=== PATIENT | female | born 1955 | race Caucasian/White ===

== ENCOUNTER 2017-12-29 05:22 | Inpatient (IN) | payer OTHER ==
[2017-12-29] MEDS: DEXAMETHASONE 4 MG/ML 1 ML INJ IV (06:38)
[2017-12-29] MEDS: oxyCODONE (CR) 10 MG TAB [oxyCONTIN] PO (06:38)
[2017-12-29] MEDS: ONDANSETRON 4 MG INJ IV ×5 (06:38→21:13)
[2017-12-29] MEDS: LACTATED RINGER'S 1,000 ML IV* (06:39)
[2017-12-29] MEDS: ACETAMINOPHEN 1000MG/100ML IV 100 ML IVPB (06:39)
[2017-12-29] MEDS ORDERED: EPHEDrine SULFATE 50 MG/5 ML SYG ×2 (07:00)
[2017-12-29] MEDS ORDERED: ALBUMIN HUMAN 5% 250 ML INJ (07:00)
[2017-12-29] MEDS ORDERED: CEFAZOLIN 1 GM INJ (07:00)
[2017-12-29] MEDS ORDERED: CA CHLORIDE 10% 10 ML SYRINGE (07:00)
[2017-12-29] MEDS: LANSOPRAZOLE 30 MG CAP PO (07:09)
[2017-12-29] MEDS ORDERED: MIDAZOLAM 1 MG/ML 2 ML INJ (07:19)
[2017-12-29] MEDS ORDERED: FENTAnyl 50 MCG/ML VIAL (07:19)
[2017-12-29] MEDS ORDERED: LIDOCAINE 2% (SDV) 5 ML INJ (07:20)
[2017-12-29] MEDS ORDERED: PROPOFOL 20 ML (07:20)
[2017-12-29] MEDS ORDERED: morphine SULFATE/PF (10 MG/10 ML) INJ (07:20)
[2017-12-29] MEDS ORDERED: ONDANSETRON 4 MG INJ (07:21)
[2017-12-29] MEDS ORDERED: BUPIVACAINE 0.75%/DEXT (SPINAL) 2 ML INJ (07:25)
[2017-12-29] MEDS: HIP PAIN COCKTAIL (CEFUROXIME) INJ ×2 (07:30→08:12)
[2017-12-29] MEDS: CEFAZOLIN 1 GM/50 ML (PMX) 50 ML IVPB ×3 (07:30→17:13)
[2017-12-29] MEDS: TRANEXAMIC ACID 1,000 MG in NS 100 ML PRE-OP X1 IVPB (07:30)
[2017-12-29] MEDS: TRANEXAMIC ACID 1,000 MG in NS 100 ML INTRA-OP X1 IVPB (07:30)
[2017-12-29] MEDS: POLYMYXIN B 500000 UNIT INJ (08:12)
[2017-12-29] MEDS: BACITRACIN 50000 UNITS INJ (08:12)
[2017-12-29] MEDS: POLYMYXIN/BACITRACIN 1L IRRIG (08:12)
[2017-12-29] MEDS ORDERED: NALOXONE (0.4 MG/ML) INJ IV ×2 (09:00→10:30)
[2017-12-29] MEDS ORDERED: BISACODYL 10 MG SUPP PR (09:00)
[2017-12-29] MEDS ORDERED: NA PHOSPHATE/BIPHOS 133 ML ENEMA PR (09:00)
[2017-12-29] MEDS ORDERED: NACL 0.9% 3 ML SYG IV (09:00)
[2017-12-29] MEDS ORDERED: BETHANECHOL 25 MG TAB PO (09:00)
[2017-12-29] MEDS ORDERED: DIPHENHYDRAMINE 50 MG INJ IM (09:00)
[2017-12-29] MEDS ORDERED: HYDROmorphONE 1 MG/5 ML IV SYRINGE IV ×3 (10:30)
[2017-12-29] MEDS ORDERED: FENTAnyl 50 MCG/ML VIAL IV ×2 (10:30)
[2017-12-29] MEDS ORDERED: ZOLPIDEM 5 MG TAB PO (10:30)
[2017-12-29] MEDS ORDERED: DIPHENHYDRAMINE 50 MG INJ IV ×2 (10:30)
[2017-12-29] MEDS ORDERED: HYDROmorphONE 0.5 MG/0.5 ML SYG IV ×2 (10:30)
[2017-12-29] MEDS ORDERED: ONDANSETRON 4 MG INJ IV ×2 (10:30)
[2017-12-29] MEDS ORDERED: MEPERIDINE 25 MG INJ IV (10:30)
[2017-12-29 10:35] LABS: ABNORMAL IP MESSAGE 1; HEMATOCRIT 27.9 % (37.0-47.0); HEMOGLOBIN 9.2 g/dl (12.0-16.0); MEAN CORPUSCULAR HEMOGLOBIN 31.5 pg (29.0-33.0); MEAN CORPUSCULAR VOLUME 95.5 fl (82.0-101.0); MEAN PLATELET VOLUME 9.8 fl (7.4-10.4); PLATELET COUNT 178 10^3/UL (140-415); RED BLOOD COUNT 2.92 10^6/ul (4.20-5.40); RED CELL DISTRIBUTION WIDTH 12.8 % (11.5-14.5)
[2017-12-29 10:35] LABS: WHITE BLOOD COUNT 6.3 10^3/ul (4.8-10.8)
[2017-12-29 10:37] LABS: HOLD TRANSMISSIONS 1; POSITIVE DIFF @See below
[2017-12-29 10:38] LABS: ADD MAN DIFF? YES
[2017-12-29] MEDS: DOCUSATE SODIUM 100 MG CAP PO (10:41)
[2017-12-29] MEDS: ASPIRIN (EC) 325 MG TAB PO ×2 (10:42→21:18)
[2017-12-29 10:57] LABS: ANION GAP 9 (8-16); BLOOD UREA NITROGEN 16 mg/dl (7-20); CARBON DIOXIDE 28 mmol/L (21-31); CHLORIDE 109 mmol/L (97-110); CREATININE 0.62 mg/dl (0.44-1.00); GLUCOSE 163 mg/dl (70-220); POTASSIUM 4.1 mmol/L (3.5-5.1); SODIUM 142 mmol/L (135-144)
[2017-12-29 10:58] LABS: CALCIUM 10.1 mg/dl (8.4-10.2); PARTIAL THROMBOPLASTIN TIME 29.2 Sec (25.0-35.0); PROTIME 14.4 Sec (11.9-14.9); PT RATIO 1.1
[2017-12-29 11:18] LABS: ANISOCYTOSIS 1+ (0-0); BAND NEUTROPHILS #M 0.3 10^3/ul (0.0-0.6); BAND NEUTROPHILS % (M) 5 % (0-4); LYMPHOCYTES #M 0.6 10^3/ul (0.8-2.9); LYMPHOCYTES % (M) 10 % (15-51); METAMYELOCYTES %M 1 % (0-0); MICROCYTOSIS 1+ (0-0); PLATELET ESTIMATE NORMAL; SEG NEUT #M 5.3 10^3/ul (1.6-7.5); SEGMENTED NEUTROPHILS (M) % 84 % (39-77); SMUDGE%M 37 % (0-0)
[2017-12-29] MEDS ORDERED: ALBUTEROL 0.083% (NEB) 2.5 MG/3 ML AMP NEB (12:30)
[2017-12-29] MEDS: SOD CHLORIDE 0.9% 1,000 ML IV ×2 (13:04→21:30)
[2017-12-29] MEDS: oxyCODONE 5 MG TAB PO ×2 (17:12→21:32)
[2017-12-29] MEDS: traZODone 50 MG TAB PO (21:13)
[2017-12-29] MEDS: VENLAFAXINE 75 MG TABLET PO (22:32)
[2017-12-30] MEDS: SOD CHLORIDE 0.9% 1,000 ML IV ×3 (01:41→15:21)
[2017-12-30] MEDS: CEFAZOLIN 1 GM/50 ML (PMX) 50 ML IVPB (01:58)
[2017-12-30] MEDS: ONDANSETRON 4 MG INJ IV (02:42)
[2017-12-30] MEDS: oxyCODONE 5 MG TAB PO ×2 (03:13→20:36)
[2017-12-30 05:41] LABS: ADD MAN DIFF? NO
[2017-12-30 05:48] LABS: WHITE BLOOD COUNT 6.8 10^3/ul (4.8-10.8)
[2017-12-30 05:48] LABS: ABNORMAL IP MESSAGE 1; BASOPHILS % 0.1 % (0.0-2.0); EOSINOPHILS # 0.1 10^3/ul (0.0-0.5); EOSINOPHILS % 1.3 % (0.0-7.0); HEMATOCRIT 19.6 % (37.0-47.0); LYMPHOCYTES # 1.4 10^3/ul (0.8-2.9); LYMPHOCYTES % 20.9 % (15.0-51.0); MEAN CORPUSCULAR HEMOGLOBIN 31.2 pg (29.0-33.0); MEAN CORPUSCULAR HGB CONC 32.1 g/dl (32.0-37.0); MEAN PLATELET VOLUME 10.5 fl (7.4-10.4); MONOCYTE # 0.5 10^3/ul (0.3-0.9); MONOCYTES % 7.6 % (0.0-11.0); NEUTROPHIL # 4.7 10^3/ul (1.6-7.5); NEUTROPHILS % 69.7 % (39.0-77.0); PLATELET COUNT 137 10^3/UL (140-415); RED BLOOD COUNT 2.02 10^6/ul (4.20-5.40); RED CELL DISTRIBUTION WIDTH 13.1 % (11.5-14.5)
[2017-12-30 06:08] LABS: ANION GAP 10 (8-16); BLOOD UREA NITROGEN 14 mg/dl (7-20); CALCIUM 8.5 mg/dl (8.4-10.2); CARBON DIOXIDE 26 mmol/L (21-31); CHLORIDE 109 mmol/L (97-110); CREATININE 0.68 mg/dl (0.44-1.00); GLUCOSE 113 mg/dl (70-220); POTASSIUM 4.6 mmol/L (3.5-5.1); SODIUM 140 mmol/L (135-144)
[2017-12-30] MEDS: PANTOPRAZOLE (EC) 40 MG TAB PO (06:11)
[2017-12-30 06:13] LABS: INR 1.04; PROTIME 13.7 Sec (11.9-14.9); PT RATIO 1.1
[2017-12-30 06:28] LABS: HEMOGLOBIN 6.3 g/dl (12.0-16.0); POSITIVE DIFF @See below
[2017-12-30 07:27] LABS: PATH REVIEW? YES
[2017-12-30] MEDS: FLUTICASONE 0.05% 16 GM NAS SPRAY NASAL (09:00)
[2017-12-30 10:42] LABS: IMMEDIATE SPIN CROSSMATCH 1 1
[2017-12-30] MEDS: SERTRALINE 100 MG TAB PO (10:47)
[2017-12-30] MEDS: ASPIRIN (EC) 325 MG TAB PO ×2 (10:47→20:37)
[2017-12-30] MEDS: FERROUS FUMARATE (SR) TAB PO ×2 (10:47→20:36)
[2017-12-30] MEDS: CELECOXIB 200 MG CAP PO ×2 (10:48→20:37)
[2017-12-30] MEDS: VENLAFAXINE 75 MG TABLET PO ×2 (10:48→20:36)
[2017-12-30] MEDS: DOCUSATE SODIUM 100 MG CAP PO ×2 (10:52→20:37)
[2017-12-30] MEDS: HYDROCODONE/APAP (5/325) TAB PO ×2 (16:02→22:09)
[2017-12-30 16:27] LABS: ADD MAN DIFF? NO
[2017-12-30 16:33] LABS: WHITE BLOOD COUNT 6.7 10^3/ul (4.8-10.8)
[2017-12-30 16:33] LABS: BASOPHILS % 0.4 % (0.0-2.0); EOSINOPHILS # 0.1 10^3/ul (0.0-0.5); EOSINOPHILS % 1.9 % (0.0-7.0); HEMATOCRIT 22.6 % (37.0-47.0); HEMOGLOBIN 7.4 g/dl (12.0-16.0); LYMPHOCYTES # 1.4 10^3/ul (0.8-2.9); LYMPHOCYTES % 20.5 % (15.0-51.0); MEAN CORPUSCULAR HGB CONC 32.7 g/dl (32.0-37.0); MEAN CORPUSCULAR VOLUME 94.6 fl (82.0-101.0); MEAN PLATELET VOLUME 10.2 fl (7.4-10.4); MONOCYTE # 0.6 10^3/ul (0.3-0.9); MONOCYTES % 8.8 % (0.0-11.0); NEUTROPHIL # 4.6 10^3/ul (1.6-7.5); PLATELET COUNT 135 10^3/UL (140-415); RED BLOOD COUNT 2.39 10^6/ul (4.20-5.40); RED CELL DISTRIBUTION WIDTH 14.3 % (11.5-14.5)
[2017-12-30] MEDS: traZODone 50 MG TAB PO (20:37)
[2017-12-31] MEDS: SOD CHLORIDE 0.9% 1,000 ML IV ×2 (04:07→23:30)
[2017-12-31] MEDS: HYDROCODONE/APAP (5/325) TAB PO ×3 (04:50→20:54)
[2017-12-31 05:26] LABS: ADD MAN DIFF? NO
[2017-12-31 05:30] LABS: BASOPHILS % 0.5 % (0.0-2.0); EOSINOPHILS # 0.1 10^3/ul (0.0-0.5); HEMATOCRIT 22.9 % (37.0-47.0); HEMOGLOBIN 7.6 g/dl (12.0-16.0); LYMPHOCYTES # 1.5 10^3/ul (0.8-2.9); LYMPHOCYTES % 23.6 % (15.0-51.0); MEAN CORPUSCULAR HEMOGLOBIN 31.7 pg (29.0-33.0); MEAN CORPUSCULAR HGB CONC 33.2 g/dl (32.0-37.0); MEAN CORPUSCULAR VOLUME 95.4 fl (82.0-101.0); MEAN PLATELET VOLUME 10.3 fl (7.4-10.4); MONOCYTE # 0.5 10^3/ul (0.3-0.9); MONOCYTES % 7.4 % (0.0-11.0); NEUTROPHIL # 4.2 10^3/ul (1.6-7.5); NEUTROPHILS % 66.2 % (39.0-77.0); PLATELET COUNT 142 10^3/UL (140-415); RED CELL DISTRIBUTION WIDTH 14.6 % (11.5-14.5)
[2017-12-31 05:30] LABS: WHITE BLOOD COUNT 6.4 10^3/ul (4.8-10.8)
[2017-12-31 05:49] LABS: INR 1.02; PROTIME 13.5 Sec (11.9-14.9); PT RATIO 1.1
[2017-12-31 06:02] LABS: ANION GAP 10 (8-16); BLOOD UREA NITROGEN 9 mg/dl (7-20); CALCIUM 8.5 mg/dl (8.4-10.2); CARBON DIOXIDE 27 mmol/L (21-31); CHLORIDE 109 mmol/L (97-110); CREATININE 0.57 mg/dl (0.44-1.00); GLUCOSE 99 mg/dl (70-220); POTASSIUM 4.3 mmol/L (3.5-5.1); SODIUM 142 mmol/L (135-144)
[2017-12-31] MEDS: oxyCODONE 5 MG TAB PO ×4 (06:04→16:24)
[2017-12-31] MEDS: PANTOPRAZOLE (EC) 40 MG TAB PO (06:04)
[2017-12-31] MEDS: VENLAFAXINE 75 MG TABLET PO ×2 (09:20→20:54)
[2017-12-31] MEDS: CELECOXIB 200 MG CAP PO ×2 (09:20→20:53)
[2017-12-31] MEDS: DOCUSATE SODIUM 100 MG CAP PO ×2 (09:20→20:53)
[2017-12-31] MEDS: FLUTICASONE 0.05% 16 GM NAS SPRAY NASAL (09:20)
[2017-12-31] MEDS: FERROUS FUMARATE (SR) TAB PO ×2 (09:20→20:53)
[2017-12-31] MEDS: SERTRALINE 100 MG TAB PO (09:20)
[2017-12-31] MEDS: ASPIRIN (EC) 325 MG TAB PO ×2 (09:20→20:53)
[2017-12-31] MEDS: SENNA/DOCUSATE NA (8.6MG/50MG) TAB PO (11:12)
[2017-12-31] MEDS: ONDANSETRON 4 MG INJ IV ×3 (13:02→20:54)
[2017-12-31] MEDS: traZODone 50 MG TAB PO (20:52)
[2018-01-01] MEDS: MAGNESIUM HYDROXIDE 30ML CUP PO (02:58)
[2018-01-01] MEDS: HYDROCODONE/APAP (5/325) TAB PO ×3 (02:58→18:24)
[2018-01-01] MEDS: PANTOPRAZOLE (EC) 40 MG TAB PO (05:17)
[2018-01-01] MEDS: oxyCODONE 5 MG TAB PO ×2 (05:18→14:02)
[2018-01-01 05:24] LABS: ADD MAN DIFF? NO
[2018-01-01 05:27] LABS: BASOPHILS % 0.4 % (0.0-2.0); EOSINOPHILS # 0.1 10^3/ul (0.0-0.5); EOSINOPHILS % 2.1 % (0.0-7.0); HEMATOCRIT 22.6 % (37.0-47.0); HEMOGLOBIN 7.4 g/dl (12.0-16.0); IMMATURE GRANS #M 0.02 10^3/ul; IMMATURE GRANS % (M) 0.4 %; LYMPHOCYTES # 1.2 10^3/ul (0.8-2.9); LYMPHOCYTES % 21.5 % (15.0-51.0); MEAN CORPUSCULAR HEMOGLOBIN 31.9 pg (29.0-33.0); MEAN CORPUSCULAR HGB CONC 32.7 g/dl (32.0-37.0); MEAN CORPUSCULAR VOLUME 97.4 fl (82.0-101.0); MEAN PLATELET VOLUME 10.1 fl (7.4-10.4); MONOCYTE # 0.4 10^3/ul (0.3-0.9); MONOCYTES % 6.8 % (0.0-11.0); NEUTROPHIL # 3.9 10^3/ul (1.6-7.5); NEUTROPHILS % 68.8 % (39.0-77.0); PLATELET COUNT 150 10^3/UL (140-415); RED BLOOD COUNT 2.32 10^6/ul (4.20-5.40); RED CELL DISTRIBUTION WIDTH 14.3 % (11.5-14.5)
[2018-01-01 05:27] LABS: WHITE BLOOD COUNT 5.6 10^3/ul (4.8-10.8)
[2018-01-01 05:48] LABS: INR 0.92; PROTIME 12.4 Sec (11.9-14.9)
[2018-01-01 05:54] LABS: ANION GAP 5 (8-16); BLOOD UREA NITROGEN 10 mg/dl (7-20); CALCIUM 8.7 mg/dl (8.4-10.2); CARBON DIOXIDE 34 mmol/L (21-31); CHLORIDE 106 mmol/L (97-110); CREATININE 0.65 mg/dl (0.44-1.00); GLUCOSE 101 mg/dl (70-220); POTASSIUM 4.4 mmol/L (3.5-5.1); SODIUM 141 mmol/L (135-144)
[2018-01-01] MEDS: SERTRALINE 100 MG TAB PO (09:00)
[2018-01-01] MEDS: FLUTICASONE 0.05% 16 GM NAS SPRAY NASAL (09:51)
[2018-01-01] MEDS: FERROUS FUMARATE (SR) TAB PO (09:51)
[2018-01-01] MEDS: DOCUSATE SODIUM 100 MG CAP PO (09:52)
[2018-01-01] MEDS: ASPIRIN (EC) 325 MG TAB PO (09:52)
[2018-01-01] MEDS: CELECOXIB 200 MG CAP PO (09:52)
[2018-01-01] MEDS: VENLAFAXINE 75 MG TABLET PO (09:52)
[2018-01-01] MEDS: SOD CHLORIDE 0.9% 1,000 ML IV (12:00)
== END 2018-01-01 18:45 | disposition home health service (06) | DRG 470 ==
LOC: REC 05:22 → MS1 13:14
PROVIDERS: Orthopaedic Surgery Adult Reconstructive Orthopaedic Surgery
PROC: 0SR904A Replacement of Right Hip Joint with Ceramic on Polyethylene Synthetic Substitute, Uncemented, Open Approach (ICD-10-PCS; principal; 2017-12-29 07:24)
PROC: 30233N1 Transfusion of Nonautologous Red Blood Cells into Peripheral Vein, Percutaneous Approach (ICD-10-PCS; 2017-12-29 07:24)
DX: M16.11 Unilateral primary osteoarthritis, right hip (principal); D62 Acute posthemorrhagic anemia; F32.9 Major depressive disorder, single episode, unspecified; F41.9 Anxiety disorder, unspecified; I95.9 Hypotension, unspecified
CPT/HCPCS: 36430; 72170; 73500; 73530; 80048; 82962; 85025; 85610; 85730; 86850; 86900; 86901; 86920; 87081; 88304; 88311; 97110; 97116; 97161; 97530

== ENCOUNTER 2018-07-20 13:05 | Day surgery (SDC) | payer OTHER ==
[2018-07-18 12:53] LABS: ADD MAN DIFF? NO
[2018-07-18 12:55] LABS: BASOPHILS % 0.6 % (0.0-2.0); EOSINOPHILS # 0.1 10^3/ul (0.0-0.5); EOSINOPHILS % 1.1 % (0.0-7.0); HEMATOCRIT 37.1 % (37.0-47.0); HEMOGLOBIN 11.7 g/dl (12.0-16.0); LYMPHOCYTES # 1.3 10^3/ul (0.8-2.9); LYMPHOCYTES % 24.8 % (15.0-51.0); MEAN CORPUSCULAR HEMOGLOBIN 28.7 pg (29.0-33.0); MEAN CORPUSCULAR HGB CONC 31.5 g/dl (32.0-37.0); MEAN CORPUSCULAR VOLUME 91.2 fl (82.0-101.0); MEAN PLATELET VOLUME 9.3 fl (7.4-10.4); MONOCYTE # 0.4 10^3/ul (0.3-0.9); MONOCYTES % 8.1 % (0.0-11.0); NEUTROPHIL # 3.5 10^3/ul (1.6-7.5); NEUTROPHILS % 65.2 % (39.0-77.0); PLATELET COUNT 271 10^3/UL (140-415); RED BLOOD COUNT 4.07 10^6/ul (4.20-5.40); RED CELL DISTRIBUTION WIDTH 13.9 % (11.5-14.5)
[2018-07-18 12:55] LABS: WHITE BLOOD COUNT 5.4 10^3/ul (4.8-10.8)
[2018-07-18 12:58] LABS: ADD UMIC NO; UR ASCORBIC ACID NEGATIVE (NEGATIVE); UR BILIRUBIN (Dip) NEGATIVE (NEGATIVE); UR BLOOD (Dip) NEGATIVE (NEGATIVE); UR CLARITY CLEAR (CLEAR); UR COLOR YELLOW (YELLOW); UR GLUCOSE (Dip) NEGATIVE (NEGATIVE); UR KETONES (Dip) NEGATIVE (NEGATIVE); UR LEUKOCYTE ESTERASE (Dip) NEGATIVE Leu/ul (NEGATIVE); UR NITRITE (Dip) NEGATIVE (NEGATIVE); UR SPECIFIC GRAVITY (Dip) 1.015 (1.003-1.030); UR TOTAL PROTEIN (Dip) NEGATIVE (NEGATIVE); UR UROBILINOGEN (Dip) NEGATIVE (NEGATIVE)
[2018-07-18 13:15] LABS: ANION GAP 8 (5-13); BLOOD UREA NITROGEN 14 mg/dl (7-20); CALCIUM 9.8 mg/dl (8.4-10.2); CARBON DIOXIDE 32 mmol/L (21-31); CHLORIDE 99 mmol/L (97-110); CREATININE 0.69 mg/dl (0.44-1.00); Estimated GFR > 60 mL/min (>60); GLUCOSE 105 mg/dl (70-220); POTASSIUM 4.4 mmol/L (3.5-5.1); SODIUM 139 mmol/L (135-144)
[2018-07-18 13:18] LABS: INR 0.88; PT RATIO 0.9
[2018-07-18 13:35] LABS: PARTIAL THROMBOPLASTIN TIME 24.7 Sec (23.0-35.0)
[2018-07-20] MEDS: BUPIVACAINE 0.5%/EPI (SDV) 30 ML INJ (15:49)
[2018-07-20] MEDS: POLYMYXIN/BACITRACIN 1L IRRIG (15:49)
[2018-07-20] MEDS ORDERED: PROPOFOL 20 ML (16:00)
[2018-07-20] MEDS ORDERED: LIDOCAINE 2% (SDV) 5 ML INJ (16:00)
[2018-07-20] MEDS ORDERED: MIDAZOLAM 1 MG/ML 2 ML INJ (16:00)
[2018-07-20] MEDS ORDERED: FENTAnyl 50 MCG/ML VIAL ×2 (16:01→17:42)
[2018-07-20] MEDS ORDERED: FAMOTIDINE 20 MG INJ (16:18)
[2018-07-20] MEDS ORDERED: CEFAZOLIN 1 GM INJ (16:18)
[2018-07-20] MEDS ORDERED: DEXAMETHASONE 4 MG/ML 5 ML INJ (16:18)
[2018-07-20] MEDS ORDERED: ONDANSETRON 4 MG INJ (16:18)
[2018-07-20] MEDS ORDERED: ROPIVACAINE 0.5 % 30 ML VIAL (16:42)
[2018-07-20] MEDS ORDERED: HYDROmorphONE 1 MG/5 ML IV SYRINGE IV ×2 (17:42→18:00)
[2018-07-20] MEDS ORDERED: PROCHLORPERAZINE 10 MG INJ IV (18:00)
[2018-07-20] MEDS ORDERED: FENTAnyl 50 MCG/ML VIAL IV ×3 (18:00)
[2018-07-20] MEDS ORDERED: ONDANSETRON 4 MG INJ IV (18:00)
[2018-07-20] MEDS ORDERED: DIPHENHYDRAMINE 50 MG INJ IV (18:00)
[2018-07-20] MEDS ORDERED: MEPERIDINE 25 MG INJ IV (18:00)
[2018-07-20] MEDS: HYDROmorphONE 1 MG/5 ML IV SYRINGE IV ×2 (18:03→18:27)
[2018-07-20] MEDS: OXYCODONE/ACETAMINOPHEN (5/325) TAB PO (18:27)
== END 2018-07-20 19:05 | disposition home or self-care (01) ==
LOC: SDS 13:05
DX: S52.021D Displaced fracture of olecranon process without intraarticular extension of right ulna, subsequent encounter for closed fracture with routine healing (principal); W19.XXXD Unspecified fall, subsequent encounter; J45.909 Unspecified asthma, uncomplicated; F41.8 Other specified anxiety disorders
CPT/HCPCS: 24685; 71045; 73080-RT; 80048; 81003; 85025; 85610; 85730; 93005